=== PATIENT | male | born 1955 | race Caucasian/White ===

== ENCOUNTER → 2023-06-10 06:21 | Day surgery (SDC) | payer MEDICARE, OTHER, SELFPAY | LOC: GI 06:21 | PROVIDERS: ATTENDING PHYSICIAN Specialist; FAMILY PHYSICIAN Family Medicine | DX: Z12.11 Encounter for screening for malignant neoplasm of colon (principal); K57.30 Diverticulosis of large intestine without perforation or abscess without bleeding; K63.5 Polyp of colon | CPT/HCPCS: 45385; 45380; 88305 ==